=== PATIENT | female | born 2000 | race Caucasian/White ===

== ENCOUNTER 2018-01-10 22:22 | Emergency (ER) | payer MEDICAID ==
[~2018-01-10] VITALS: Ht 165.1 cm; Wt 76.7 kg
[2018-01-10 22:28] VITALS: Ht 165.1 cm; Wt 76.7 kg
[2018-01-11 01:29] VITALS: BP 116/67
== END 2018-01-11 02:31 | disposition home or self-care (01) ==
LOC: ED 22:22
DX: M94.0 Chondrocostal junction syndrome [Tietze] (principal); R07.89 Other chest pain
CPT/HCPCS: J1885

== ENCOUNTER 2018-01-14 23:36 | Emergency (ER) | payer MEDICAID ==
[2018-01-15 00:38] VITALS: BP 125/78
== END 2018-01-15 00:38 | disposition home or self-care (01) ==
LOC: ED 23:36
DX: K29.70 Gastritis, unspecified, without bleeding (principal)
CPT/HCPCS: Q0162